=== PATIENT | female | born 1995 | race Hispanic/Latino ===

== ENCOUNTER 2025-07-02 11:54 | Day surgery (SDC) | payer BC, OTHER ==
[~2025-07-02] VITALS: Ht 152.4 cm; Wt 54.9 kg
[~2025-07-02 11:54] MED LIST: IBLOOD GLUCOSE TEST STRIP 1 EA TEST VI PRN; LACTATED RINGER'S 1,000 ML IV SCH; LIDOCAINE HCL 1% 5 ML SDV INJ ONE; LIDOCAINE HCL 4% 50 ML BTL TOP SCH; MIDAZOLAM HCL 5 MG/5 ML VIAL IV PRN; fentaNYL citrate 100 MCG/2 ML VIAL IV PRN
[2025-07-02 12:39] VITALS: BP 110/68
[2025-07-02] MEDS ORDERED: TWIRLA 120-301 EACH TD (12:42)
[2025-07-02] MEDS ORDERED: OMEPRAZOLE20 MG PO (12:42)
[2025-07-02] MEDS ORDERED: fentaNYL citrate 100 MCG/2 ML VIAL ONE (13:12)
[2025-07-02] MEDS ORDERED: MIDAZOLAM HCL 5 MG/5 ML VIAL ONE (13:12)
--- NOTE | 2025-07-02 14:53 | NUR ---
07/02/25 1453 Sandra,Gretchen 1448 PT ARRIVED TO PACU ON 2L VIA NC, PT AWAKES EASILY AND FALLS EASILY BACK TO SLEEP. RESP EVEN AND UNLABORED.
--- NOTE | 2025-07-02 18:38 | OR ---
[facility] [address], [place] [address] Signed DATE OF OPERATION: 07/02/2025 SURGEON: Rita Morales MD PREOPERATIVE DIAGNOSIS: Persistent episodic epigastric pain. POSTOPERATIVE DIAGNOSIS: Essentially normal upper endoscopy except for mild antral gastritis. No evidence of ulcer, neoplasm, and CLOtest negative for H pylori. PROCEDURE: Esophagogastroduodenoscopy with biopsy. ANESTHESIA: Intravenous sedation; fentanyl 100 mcg and Versed 5 mg total. INDICATION: This fit and healthy 30-year-old woman is a patient of Jeanna Faye of [place], [place]. She is referred for consideration for upper endoscopy. She has been evaluated in an urgent care setting at least twice and was prescribed PPI medication, which was variably helpful. She discontinued the medication after 30 days. She has had recurrent symptoms of epigastric pain. She does note that "greasy foods" also contributes to her symptoms. She has had no right subcostal or back pain associated with this and knows of no family history of biliary disease. She is admitted to undergo upper endoscopy to better characterize her problem. FINDINGS: This study was essentially normal. The esophagus and stomach were completely normal without sign of ulceration or neoplasm. There is minimal edema and erythema of the antrum and the pylorus was normal. The duodenum was normal without sign of ulceration or neoplasm either. CLOtest biopsy is negative 15 minutes postprocedure. DESCRIPTION OF PROCEDURE: The patient was brought to the endoscopy suite and placed in lateral decubitus position, given intravenous sedation to the point of slurred speech and nystagmus with full cardiopulmonary monitoring. A bite block was placed. An Olympus video upper endoscope was passed in the hypopharynx. The vocal cords were visualized and found to be normal. The scope was advanced down the esophagus, which was completely normal in every way. The scope was passed to the stomach, which was insufflated with air. There was no sign Electronically Signed By: RITA MORALES MD 07/02/25 1838 PATIENT NAME: IRA QUINTERO OPERATIVE REPORT DATE OF : [birth year] REPORT #: [id number] PHYSICIAN: RITA MORALES MD PCP: JEANNA FAYE REPORT IS CONFIDENTIAL AND NOT TO BE RELEASED WITHOUT AUTHORIZATION [facility] [address], [place] [address] Signed of bile or retained food. Antral motility appeared normal. The pylorus was normal. Scope was passed through into the duodenum, which was normal. The ampulla was normal. Biopsies were taken of the 3rd and 2nd portions of the duodenum to assess for celiac disease. The scope was withdrawn inspecting the pyloric channel carefully showing no sign of ulceration. Further withdrawal showed mild antral inflammation and narrow band imaging confirmed this as well. Biopsies were obtained there. Retroflexed view of the rectum showed a reasonably good flap valve with no sign of hiatal hernia, varices, or other issue. The scope was withdrawn and biopsies taken of the distal esophagus and ultimately the midesophagus and ultimately the scope was removed. CONCLUDING DIAGNOSIS: Essentially normal upper endoscopy, though mild antral gastritis. PLAN: We will recommend continued use of Prilosec 20 mg daily. It has been helpful to her before and there is little hazard to take it on the short term. We await her gallbladder ultrasound, which was scheduled for July 15, 2025. I will see in the office thereafter and we will review her situation further. MD LUMA Whitaker/MODL /[id number] cc: CAROLYN Sapp Copies: ~ Electronically Signed By: RITA MORALES MD 07/02/25 1838 PATIENT NAME: PRABHAKAR MÁRQUEZIRA EDUARDOZMIN OPERATIVE REPORT DATE OF : [birth year] REPORT #: [id number] PHYSICIAN: RITA MORALES MD PCP: JEANNA FAYE REPORT IS CONFIDENTIAL AND NOT TO BE RELEASED WITHOUT AUTHORIZATION
== END 2025-07-02 15:31 | disposition home or self-care (01) ==
LOC: DS 11:54
PROVIDERS: ATTEND Surgery
PROC: 0DB68ZX Excision of Stomach, Via Natural or Artificial Opening Endoscopic, Diagnostic (ICD-10-PCS; 2025-07-02)
PROC: 0DB28ZX Excision of Middle Esophagus, Via Natural or Artificial Opening Endoscopic, Diagnostic (ICD-10-PCS; 2025-07-02)
PROC: 0DB38ZX Excision of Lower Esophagus, Via Natural or Artificial Opening Endoscopic, Diagnostic (ICD-10-PCS; 2025-07-02)
PROC: 0DB98ZX Excision of Duodenum, Via Natural or Artificial Opening Endoscopic, Diagnostic (ICD-10-PCS; principal; 2025-07-02 13:30)
DX: K29.70 Gastritis, unspecified, without bleeding (principal)
CPT/HCPCS: 84703; 88305; 99153; G0500; J2250; J3010; J7121